=== PATIENT | male | born 1965 | race American Indian/Alaskan Native ===

== ENCOUNTER 2019-10-08 22:21 | Emergency (ER) | payer SELFPAY ==
[2019-10-08 23:55] LABS: Basophils % (Auto) 0.3 % (0.0-1.8); Eosinophils % (Auto) 0.2 % (0.0-4.3); Hematocrit 40.7 % (35.5-45.6); Hemoglobin 13.3 gm/dl (11.8-15.2); Lymphocytes % (Auto) 22.1 % (13.4-35.0); Mean Corpuscular HGB Conc 33 % (32-34); Mean Corpuscular Volume 92 fl (84-94); Monocytes # (Auto) 0.4 K/mm3 (0.0-0.8); Monocytes % (Auto) 7.9 % (0.0-7.3); Platelet Count 285 K/mm3 (140-440); Red Blood Count 4.41 M/mm3 (3.65-5.03); Red Cell Distribution Width 14.8 % (13.2-15.2)
[2019-10-09 00:15] LABS: BUN/Creatinine Ratio 13; Blood Urea Nitrogen 13 mg/dL (9-20); Calcium 8.7 mg/dL (8.4-10.2); Hemolysis Index 17
--- NOTE | 2019-10-09 00:24 | Emergency Department Report ---
HPI - General Chief Complaint: Psych Time Seen by Provider: 10/09/19 00:14 - HPI HPI: Room 12 The patient is a 54-year-old male presented with a chief complaint of depression and suicidal ideation. The patient has a history of depression but states he has not had any medication for many years. The patient states for the past 3-4 days he's felt depressed and suicidal. The patient states 3-4 days ago he attempted to kill himself by overdosing on crack. Patient denies any other attempts. Location: [See above] Duration: [See above] Quality: [See above] Severity: [See above] Timing: [See above] Context: [See above] Modifying factors: [See above] Associated signs and symptoms: [see above] ED Past Medical Hx - Past Medical History Previous Medical History?: Yes Hx Hypertension: Yes Hx Diabetes: Yes Hx Psychiatric Treatment: Yes (Depression, Anxiety, PTSD) - Surgical History Past Surgical History?: No - Family History Family history: no significant - Social History Smoking Status: Never Smoker Substance Use Type: Cocaine ED Review of Systems ROS: Stated complaint: SUICIDAL THOUGHTS Other details as noted in HPI Constitutional: no symptoms reported Eyes: denies: eye pain ENT: denies: throat pain Respiratory: no symptoms reported Cardiovascular: denies: chest pain Endocrine: no symptoms reported Gastrointestinal: denies: abdominal pain Genitourinary: denies: dysuria Musculoskeletal: denies: back pain Psychiatric: suicidal thoughts Physical Exam - Physical Exam Vital Signs: Vital Signs 10/08/19 10/08/19 22:36 22:38 Temperature 98.6 F Pulse Rate 83 Respiratory 18 Rate Blood Pressure 115/78 O2 Sat by Pulse 100 Oximetry Physical Exam: GENERAL: The patient is well-developed well-nourished male lying on stretcher not appearing to be in acute distress. [] HEENT: Normocephalic. Atraumatic. Extraocular motions are intact. Patient has moist mucous membranes. NECK: Supple. Trachea midline CHEST/LUNGS: Clear to auscultation. There is no respiratory distress noted. HEART/CARDIOVASCULAR: Regular. There is no tachycardia. There is no gallop rub or murmur. ABDOMEN: Abdomen is soft, nontender. Patient has normal bowel sounds. There is no abdominal distention. SKIN: There is no rash. There is no edema. There is no diaphoresis. NEURO: The patient is awake, alert, and oriented. The patient is cooperative. The patient has normal speech MUSCULOSKELETAL: There is no evidence of acute injury. ED Course Vital Signs 10/08/19 10/08/19 22:36 22:38 Temperature 98.6 F Pulse Rate 83 Respiratory 18 Rate Blood Pressure 115/78 O2 Sat by Pulse 100 Oximetry ED Medical Decision Making - Lab Data Result diagrams: 10/08/19 23:26 10/08/19 23:26 Laboratory Tests 10/08/19 10/08/19 10/08/19 23:26 23:26 23:26 WBC RBC Hgb Hct MCV MCH MCHC RDW Plt Count Lymph % (Auto) [place] % (Auto) Eos % (Auto) Baso % (Auto) Lymph # [place] # Eos # Baso # Seg Neutrophils % Seg Neutrophils # Sodium 136 L Potassium 4.4 Chloride 106.7 Carbon Dioxide 21 L Anion Gap 13 BUN 13 Creatinine 1.0 Estimated GFR > 60 BUN/Creatinine Ratio 13 Glucose 298 H Calcium 8.7 Salicylates < 0.3 L Acetaminophen < 5.0 L Plasma/Serum Alcohol 10/08/19 10/08/19 23:26 23:26 WBC 4.7 RBC 4.41 Hgb 13.3 Hct 40.7 MCV 92 MCH 30 MCHC 33 RDW 14.8 Plt Count 285 Lymph % (Auto) 22.1 [place] % (Auto) 7.9 H Eos % (Auto) 0.2 Baso % (Auto) 0.3 Lymph # 1.0 L [place] # 0.4 Eos # 0.0 Baso # 0.0 Seg Neutrophils % 69.5 Seg Neutrophils # 3.2 Sodium Potassium Chloride Carbon Dioxide Anion Gap BUN Creatinine Estimated GFR BUN/Creatinine Ratio Glucose Calcium Salicylates Acetaminophen Plasma/Serum Alcohol < 0.01 - Differential Diagnosis suicidal ideation Critical care attestation.: If time is entered above; I have spent that time in minutes in the direct care of this critically ill patient, excluding procedure time. ED Disposition Clinical Impression: Suicidal ideation, Cocaine abuse Disposition: [id number]/TX-[id number] PSY HOSP/PSY UNIT Is pt being admited?: No Does the pt Need Aspirin: No Condition: Stable Time of Disposition: 00:24 (awaiting acceptance)
[2019-10-09 10:54] LABS: Amphetamine Screen,Urine PRESUMPTIVE NEGATIVE; Bilirubin,Urine NEG (Negative); Blood,Urine NEG (Negative); Cannabinoid Screen,Urine PRESUMPTIVE NEGATIVE; Cocaine Screen,Urine PRESUMPTIVE NEGATIVE; Color,Urine Yellow (Yellow); Methadone Screen,Urine PRESUMPTIVE NEGATIVE; Mucus,Urine FEW /HPF; Opiate Screen,Urine PRESUMPTIVE NEGATIVE; Protein,Urine <15 mg/dL mg/dL (Negative); Urobilinogen,Urine < 2.0 mg/dL (<2.0)
[2019-10-09 11:22] LABS: Benzodiazepines Screen,Urine PRESUMPTIVE POSITIVE
[2019-10-09] MEDS ORDERED: INSULIN REGULAR, HUMAN 100 UNITS/1 ML SUB-Q ONE (20:16)
[2019-10-09] MEDS ORDERED: glipiZIDE 10 MG TAB PO SCH (22:00)
[2019-10-10 01:06] VITALS: BP 124/82
[2019-10-10] MEDS ORDERED: SITAGLIPTIN PHOSPHATE PO SCH (10:00)
[2019-10-10] MEDS ORDERED: LINAGLIPTIN 5 MG TAB PO SCH (10:00)
== END 2019-10-10 01:06 ==
LOC: EDBD → ED 22:21
DX: F32.9 Major depressive disorder, single episode, unspecified (principal); F41.9 Anxiety disorder, unspecified; F43.10 Post-traumatic stress disorder, unspecified; F14.10 Cocaine abuse, uncomplicated; I10 Essential (primary) hypertension; E11.9 Type 2 diabetes mellitus without complications
CPT/HCPCS: 36415; 80048; 80307; 80320; 81001; 82962; 85025; 96372; G0480; J1815